=== PATIENT | female | born 1970 | race Caucasian/White ===

== ENCOUNTER 2017-06-18 15:18 | Emergency (ER) | payer OTHER ==
[2017-06-18] MEDS ORDERED: SOD CHLORIDE 0.9% 1,000 ML IV (16:32)
[2017-06-18] MEDS ORDERED: ONDANSETRON 4 MG INJ IV (16:32)
[2017-06-18] MEDS ORDERED: morphine 4 MG/ML VIAL IV (16:32)
[2017-06-18] MEDS ORDERED: VANCOMYCIN 1 GM (PMX) 250 ML IVPB (17:00)
[2017-06-18] MEDS ORDERED: CEFEPIME 1GM/50 ML (PMX) 50 ML IVPB (17:00)
== END 2017-06-18 18:15 | disposition home or self-care (01) ==
LOC: E/R 15:18 → FTE 18:15
DX: J06.9 Acute upper respiratory infection, unspecified (principal); I10 Essential (primary) hypertension; E11.9 Type 2 diabetes mellitus without complications; Z79.01 Long term (current) use of anticoagulants; Z79.4 Long term (current) use of insulin; Z79.82 Long term (current) use of aspirin; Z79.84 Long term (current) use of oral hypoglycemic drugs
CPT/HCPCS: 99282; Z7502

== ENCOUNTER 2017-09-23 08:19 | Inpatient (IN) | payer MEDICAID, OTHER ==
[2017-09-23 09:25] LABS: ADD MAN DIFF? NO
[2017-09-23 09:29] LABS: WHITE BLOOD COUNT 16.2 10^3/ul (4.8-10.8)
[2017-09-23 09:29] LABS: BASOPHILS % 0.2 % (0.0-2.0); EOSINOPHILS % 0.2 % (0.0-7.0); HEMATOCRIT 31.1 % (37.0-47.0); HEMOGLOBIN 10.4 g/dl (12.0-16.0); LYMPHOCYTES # 1.6 10^3/ul (0.8-2.9); MEAN CORPUSCULAR HEMOGLOBIN 26.9 pg (29.0-33.0); MEAN CORPUSCULAR HGB CONC 33.4 g/dl (32.0-37.0); MEAN CORPUSCULAR VOLUME 80.4 fl (82.0-101.0); MEAN PLATELET VOLUME 9.7 fl (7.4-10.4); MONOCYTE # 1.2 10^3/ul (0.3-0.9); MONOCYTES % 7.2 % (0.0-11.0); NEUTROPHIL # 13.2 10^3/ul (1.6-7.5); NEUTROPHILS % 81.6 % (39.0-77.0); PLATELET COUNT 393 10^3/UL (140-415); RED BLOOD COUNT 3.87 10^6/ul (4.20-5.40)
[2017-09-23 09:33] LABS: ADD UMIC YES; UR ASCORBIC ACID NEGATIVE (NEGATIVE); UR BACTERIA FEW /HPF (NONE SEEN); UR BILIRUBIN (Dip) NEGATIVE (NEGATIVE); UR BLOOD (Dip) NEGATIVE (NEGATIVE); UR CLARITY CLEAR (CLEAR); UR COLOR STRAW (YELLOW); UR GLUCOSE (Dip) 3+ mg/dL (NEGATIVE); UR KETONES (Dip) NEGATIVE (NEGATIVE); UR LEUKOCYTE ESTERASE (Dip) NEGATIVE Leu/ul (NEGATIVE); UR NITRITE (Dip) NEGATIVE (NEGATIVE); UR RBC 1 /HPF (0-5); UR SPECIFIC GRAVITY (Dip) 1.011 (1.003-1.030); UR TOTAL PROTEIN (Dip) 2+ mg/dl (NEGATIVE); UR UROBILINOGEN (Dip) NEGATIVE (NEGATIVE); UR WBC 4 /HPF (0-5)
[2017-09-23] MEDS: ACETAMINOPHEN 325 MG TAB PO ×2 (09:38→19:51)
[2017-09-23] MEDS: CEFTRIAXONE 1 GM/50 ML (PMX) 50 ML IVPB (09:39)
[2017-09-23] MEDS: SODIUM CHLORIDE 0.9% 1L BAG IV* (09:39)
[2017-09-23 09:50] LABS: INR 0.86; PROTIME 11.8 Sec (11.9-14.9); PT RATIO 0.9
[2017-09-23 09:51] LABS: PARTIAL THROMBOPLASTIN TIME 36.1 Sec (25.0-35.0)
[2017-09-23 09:51] LABS: LACTIC ACID 1.4 mmol/L (0.5-2.0)
[2017-09-23 09:52] LABS: ALANINE AMINOTRANSFERASE 23 IU/L (13-69); ALBUMIN 3.7 g/dl (3.3-4.9); ALBUMIN/GLOBULIN RATIO 0.94; ALKALINE PHOSPHATASE 129 IU/L (42-121); ANION GAP 18 (8-16); ASPARTATE AMINO TRANSFERASE 18 IU/L (15-46); BILIRUBIN,INDIRECT 0.2 mg/dl (0-1.1); BILIRUBIN,TOTAL 0.2 mg/dl (0.2-1.3); BLOOD UREA NITROGEN 14 mg/dl (7-20); CALCIUM 8.6 mg/dl (8.4-10.2); CARBON DIOXIDE 23 mmol/L (21-31); CHLORIDE 101 mmol/L (97-110); CREATININE 0.83 mg/dl (0.44-1.00); POTASSIUM 4.5 mmol/L (3.5-5.1); SODIUM 137 mmol/L (135-144); TOTAL PROTEIN 7.6 g/dl (6.1-8.1)
[2017-09-23 09:58] LABS: GLUCOSE 402 mg/dl (70-220)
[2017-09-23 10:03] LABS: TROPONIN-I < 0.012 ng/ml (0.00-0.12)
[2017-09-23 11:07] LABS: LACTIC ACID 1.2 mmol/L (0.5-2.0)
[2017-09-23] MEDS: AZITHROMYCIN 500MG/NS (PMX) 250 ML IVPB (11:36)
[2017-09-23] MEDS: IBUPROFEN 800 MG TAB PO (12:14)
[2017-09-23] MEDS ORDERED: ONDANSETRON 4 MG INJ IV (12:30)
[2017-09-23] MEDS: metFORMIN 500 MG TAB PO (17:35)
[2017-09-23] MEDS ORDERED: GLUCOSE GEL 15 GRAM TUBE PO ×2 (18:00)
[2017-09-23] MEDS ORDERED: GLUCAGON 1 MG INJ IM (18:00)
[2017-09-23] MEDS: INSULIN ASPART [NOVOLOG] 3 ML PEN SC ×2 (18:00→21:57)
[2017-09-23] MEDS ORDERED: GLUCOSE GEL 15 GRAM TUBE BUCCAL (18:00)
[2017-09-23] MEDS ORDERED: DEXTROSE 50% 50 ML SYRINGE IV ×2 (18:00)
[2017-09-23] MEDS: SOD CHLORIDE 0.45% 1,000 ML IV ×2 (18:06→22:00)
[2017-09-23] MEDS: PIPER-TAZO 3.375 GM IV (PMX) 100 ML IVPB (18:06)
[2017-09-23] MEDS: INSULIN GLARGINE [LANtus] 3 ML PEN SC (21:58)
[2017-09-23] MEDS: LEVOFLOXACIN 750MG/D5W (PMX) 150 ML IVPB (23:33)
[2017-09-23] MEDS: KETOROLAC 15 MG INJ IV (23:36)
[2017-09-24] MEDS ORDERED: ZOLPIDEM 5 MG TAB (01:03)
[2017-09-24] MEDS: VANCOMYCIN 1 GM (PMX) 250 ML IVPB ×2 (01:07→21:00)
[2017-09-24] MEDS: ZOLPIDEM 5 MG TAB PO ×2 (01:08→22:15)
[2017-09-24] MEDS: PANTOPRAZOLE (EC) 40 MG TAB PO (05:38)
[2017-09-24] MEDS: KETOROLAC 15 MG INJ IV ×3 (05:40→20:59)
[2017-09-24 06:29] LABS: ADD MAN DIFF? NO
[2017-09-24 06:44] LABS: BASOPHILS % 0.2 % (0.0-2.0); EOSINOPHILS % 0.3 % (0.0-7.0); HEMATOCRIT 27.6 % (37.0-47.0); HEMOGLOBIN 9.1 g/dl (12.0-16.0); LYMPHOCYTES # 1.8 10^3/ul (0.8-2.9); LYMPHOCYTES % 12.7 % (15.0-51.0); MEAN CORPUSCULAR HEMOGLOBIN 26.4 pg (29.0-33.0); MONOCYTE # 1.1 10^3/ul (0.3-0.9); MONOCYTES % 7.4 % (0.0-11.0); NEUTROPHIL # 11.1 10^3/ul (1.6-7.5); NEUTROPHILS % 78.8 % (39.0-77.0); PLATELET COUNT 357 10^3/UL (140-415); RED BLOOD COUNT 3.45 10^6/ul (4.20-5.40); RED CELL DISTRIBUTION WIDTH 13.9 % (11.5-14.5)
[2017-09-24 06:44] LABS: WHITE BLOOD COUNT 14.1 10^3/ul (4.8-10.8)
[2017-09-24 06:47] LABS: INR 0.96; PROTIME 12.9 Sec (11.9-14.9)
[2017-09-24 06:48] LABS: PARTIAL THROMBOPLASTIN TIME 33.7 Sec (25.0-35.0)
[2017-09-24] MEDS: LEVOTHYROXINE 50 MCG TAB PO (06:52)
[2017-09-24 06:55] LABS: LACTIC ACID 1.2 mmol/L (0.5-2.0)
[2017-09-24 06:56] LABS: ALANINE AMINOTRANSFERASE 28 IU/L (13-69); ALBUMIN 3.2 g/dl (3.3-4.9); ALBUMIN/GLOBULIN RATIO 1.06; ALKALINE PHOSPHATASE 120 IU/L (42-121); ANION GAP 15 (8-16); ASPARTATE AMINO TRANSFERASE 16 IU/L (15-46); BLOOD UREA NITROGEN 15 mg/dl (7-20); CALCIUM 7.8 mg/dl (8.4-10.2); CARBON DIOXIDE 19 mmol/L (21-31); CHLORIDE 106 mmol/L (97-110); CREATININE 0.77 mg/dl (0.44-1.00); GLUCOSE 276 mg/dl (70-220); POTASSIUM 4.2 mmol/L (3.5-5.1); SODIUM 136 mmol/L (135-144); TOTAL PROTEIN 6.2 g/dl (6.1-8.1)
[2017-09-24 07:04] LABS: TROPONIN-I 0.092 ng/ml (0.00-0.12)
[2017-09-24] MEDS: ALBUTEROL 0.083% (NEB) 2.5 MG/3 ML AMP HHN ×3 (08:26→17:00)
[2017-09-24] MEDS: metFORMIN 500 MG TAB PO ×2 (09:17→18:06)
[2017-09-24] MEDS: INSULIN ASPART [NOVOLOG] 3 ML PEN SC ×4 (09:18→21:09)
[2017-09-24] MEDS: LORATADINE 10 MG TAB PO (09:18)
[2017-09-24] MEDS: LOSARTAN 25 MG TAB PO (09:19)
[2017-09-24] MEDS: CLOPIDOGREL 75 MG TAB PO (09:19)
[2017-09-24] MEDS: ASPIRIN (EC) 81 MG TAB PO (09:19)
[2017-09-24] MEDS: FLUOXETINE 20 MG CAP PO (09:19)
[2017-09-24] MEDS: ACETAMINOPHEN 325 MG TAB PO (11:20)
[2017-09-24] MEDS: SOD CHLORIDE 0.45% 1,000 ML IV (12:51)
[2017-09-24] MEDS ORDERED: NITROGLYCERIN (SL) 0.4 MG TAB (15:22)
[2017-09-24] MEDS: NITROGLYCERIN (SL) 0.4 MG TAB SL (15:25)
[2017-09-24] MEDS ORDERED: NITROGLYCERIN (SL) 0.4 MG TAB SL (16:00)
[2017-09-24 17:10] LABS: B-TYPE NATRIURETIC PEPTIDE 3710 PG/ML (0-125)
[2017-09-24 17:25] LABS: TROPONIN-I 0.185 ng/ml (0.00-0.12)
[2017-09-24] MEDS: ONDANSETRON 4 MG TAB PO (17:31)
[2017-09-24] MEDS ORDERED: SOD CHLORIDE 0.45% 1,000 ML IV (18:20)
[2017-09-24] MEDS ORDERED: ACETAMINOPHEN 325 MG TAB PO (18:30)
[2017-09-24] MEDS ORDERED: ONDANSETRON 4 MG INJ IV (18:30)
[2017-09-24] MEDS: METOPROLOL 25 MG TAB PO (20:59)
[2017-09-24] MEDS ORDERED: ATORVASTATIN 40 MG TAB PO (21:00)
[2017-09-24] MEDS ORDERED: ATORVASTATIN 20 MG TAB PO (21:00)
[2017-09-24] MEDS: INSULIN GLARGINE [LANtus] 3 ML PEN SC (21:09)
[2017-09-24] MEDS: ATORVASTATIN 20 MG TAB PO (21:12)
[2017-09-24] MEDS: FUROSEMIDE 20 MG INJ IV (21:12)
[2017-09-24 21:43] LABS: CREATINE KINASE 56 IU/L (23-200)
[2017-09-24 21:56] LABS: CK INDEX 1.1; CK-MB 0.64 ng/ml (0.0-2.4)
[2017-09-24 21:58] LABS: TROPONIN-I 0.247 ng/ml (0.00-0.12)
[2017-09-24] MEDS: LEVOFLOXACIN 750MG/D5W (PMX) 150 ML IVPB (23:25)
[2017-09-25] MEDS: LEVOTHYROXINE 50 MCG TAB PO (05:58)
[2017-09-25] MEDS: PANTOPRAZOLE (EC) 40 MG TAB PO (05:58)
[2017-09-25] MEDS: KETOROLAC 15 MG INJ IV ×2 (06:04→17:19)
[2017-09-25 07:48] LABS: ADD MAN DIFF? NO
[2017-09-25 07:54] LABS: BASOPHILS % 0.2 % (0.0-2.0); EOSINOPHILS # 0.1 10^3/ul (0.0-0.5); EOSINOPHILS % 0.8 % (0.0-7.0); HEMATOCRIT 23.5 % (37.0-47.0); HEMOGLOBIN 7.8 g/dl (12.0-16.0); LYMPHOCYTES # 2.1 10^3/ul (0.8-2.9); LYMPHOCYTES % 18.9 % (15.0-51.0); MEAN CORPUSCULAR HEMOGLOBIN 26.7 pg (29.0-33.0); MEAN CORPUSCULAR HGB CONC 33.2 g/dl (32.0-37.0); MEAN CORPUSCULAR VOLUME 80.5 fl (82.0-101.0); MEAN PLATELET VOLUME 10.1 fl (7.4-10.4); MONOCYTE # 1.2 10^3/ul (0.3-0.9); MONOCYTES % 10.2 % (0.0-11.0); NEUTROPHIL # 7.9 10^3/ul (1.6-7.5); NEUTROPHILS % 69.4 % (39.0-77.0); PLATELET COUNT 345 10^3/UL (140-415); RED BLOOD COUNT 2.92 10^6/ul (4.20-5.40); RED CELL DISTRIBUTION WIDTH 14.1 % (11.5-14.5)
[2017-09-25 07:54] LABS: WHITE BLOOD COUNT 11.3 10^3/ul (4.8-10.8)
[2017-09-25 08:12] LABS: CREATINE KINASE 46 IU/L (23-200)
[2017-09-25] MEDS: LORATADINE 10 MG TAB PO (08:14)
[2017-09-25] MEDS: metFORMIN 500 MG TAB PO ×2 (08:14→17:17)
[2017-09-25] MEDS: CLOPIDOGREL 75 MG TAB PO (08:15)
[2017-09-25] MEDS: ASPIRIN (EC) 81 MG TAB PO (08:15)
[2017-09-25] MEDS: LOSARTAN 25 MG TAB PO (08:15)
[2017-09-25] MEDS: FLUOXETINE 20 MG CAP PO (08:15)
[2017-09-25] MEDS: METOPROLOL 25 MG TAB PO (08:15)
[2017-09-25 08:17] LABS: ALANINE AMINOTRANSFERASE 25 IU/L (13-69); ALBUMIN 2.8 g/dl (3.3-4.9); ALBUMIN/GLOBULIN RATIO 0.96; ALKALINE PHOSPHATASE 136 IU/L (42-121); ANION GAP 14 (8-16); ASPARTATE AMINO TRANSFERASE 20 IU/L (15-46); BLOOD UREA NITROGEN 14 mg/dl (7-20); CALCIUM 8.2 mg/dl (8.4-10.2); CARBON DIOXIDE 20 mmol/L (21-31); CHLORIDE 104 mmol/L (97-110); CREATININE 0.88 mg/dl (0.44-1.00); GLUCOSE 183 mg/dl (70-220); POTASSIUM 4.7 mmol/L (3.5-5.1); SODIUM 133 mmol/L (135-144); TOTAL PROTEIN 5.7 g/dl (6.1-8.1)
[2017-09-25 08:21] LABS: B-TYPE NATRIURETIC PEPTIDE 3500 PG/ML (0-125)
[2017-09-25] MEDS: INSULIN ASPART [NOVOLOG] 3 ML PEN SC ×4 (08:22→21:00)
[2017-09-25 08:23] LABS: CK INDEX 1.6; CK-MB 0.74 ng/ml (0.0-2.4)
[2017-09-25 08:26] LABS: TROPONIN-I 0.252 ng/ml (0.00-0.12)
[2017-09-25 09:15] LABS: ERYTHROCYTE SEDIMENTATION RATE 130 mm/Hr (0-20)
[2017-09-25] MEDS: ALBUTEROL 0.083% (NEB) 2.5 MG/3 ML AMP HHN ×3 (09:19→16:28)
[2017-09-25 09:32] LABS: C-REACTIVE PROTEIN 21.9 mg/dl (0.0-0.9)
[2017-09-25 11:20] LABS: ADD MAN DIFF? NO
[2017-09-25 11:25] LABS: BASOPHILS % 0.2 % (0.0-2.0); EOSINOPHILS # 0.1 10^3/ul (0.0-0.5); EOSINOPHILS % 0.8 % (0.0-7.0); HEMOGLOBIN 7.9 g/dl (12.0-16.0); LYMPHOCYTES # 2.7 10^3/ul (0.8-2.9); LYMPHOCYTES % 24.4 % (15.0-51.0); MEAN CORPUSCULAR HEMOGLOBIN 26.4 pg (29.0-33.0); MEAN CORPUSCULAR HGB CONC 32.9 g/dl (32.0-37.0); MEAN CORPUSCULAR VOLUME 80.3 fl (82.0-101.0); MONOCYTE # 1.2 10^3/ul (0.3-0.9); MONOCYTES % 10.3 % (0.0-11.0); NEUTROPHIL # 7.1 10^3/ul (1.6-7.5); NEUTROPHILS % 63.7 % (39.0-77.0); PLATELET COUNT 347 10^3/UL (140-415); RED BLOOD COUNT 2.99 10^6/ul (4.20-5.40); RED CELL DISTRIBUTION WIDTH 14.4 % (11.5-14.5)
[2017-09-25 11:25] LABS: WHITE BLOOD COUNT 11.2 10^3/ul (4.8-10.8)
[2017-09-25 11:48] LABS: CREATINE KINASE 47 IU/L (23-200)
[2017-09-25 12:00] LABS: CK INDEX 1.1; CK-MB 0.52 ng/ml (0.0-2.4)
[2017-09-25 12:03] LABS: TROPONIN-I 0.209 ng/ml (0.00-0.12)
[2017-09-25 12:28] LABS: HEMOGLOBIN A1C 11.6 % (0-5.9)
[2017-09-25] MEDS: ERTAPENEM SODIUM 1 GM in SOD CHLORIDE 0.9% 100 ML IVPB (14:30)
[2017-09-25] MEDS: SOD CHLORIDE 0.9% 100 ML (17:48)
[2017-09-25] MEDS: IODIXANOL LOCM 100 ML BTL (17:48)
[2017-09-25 19:06] LABS: IRON 29 ug/dl (35-150)
[2017-09-25 19:16] LABS: % IRON SATURATION 10 % SAT (22-52); TOTAL IRON BINDING CAPACITY 291 ug/dl (241-421)
[2017-09-25] MEDS: METOPROLOL 50 MG TAB PO ×2 (21:00→21:44)
[2017-09-25] MEDS: DIPHENHYDRAMINE 50 MG INJ IV (21:06)
[2017-09-25] MEDS: TRIAMCINOLONE ACET 0.1% 15 GM CR TOP (21:06)
[2017-09-25] MEDS: traZODone 50 MG TAB PO (21:12)
[2017-09-25] MEDS: ACETAMINOPHEN 500 MG TAB PO (21:12)
[2017-09-25] MEDS: ATORVASTATIN 40 MG TAB PO (21:12)
[2017-09-25] MEDS: INSULIN GLARGINE [LANtus] 3 ML PEN SC (21:21)
[2017-09-25 21:28] LABS: IMMEDIATE SPIN CROSSMATCH 1 1
[2017-09-26] MEDS: LEVOFLOXACIN 750MG/D5W (PMX) 150 ML IVPB ×2 (00:41→23:04)
[2017-09-26] MEDS: FUROSEMIDE 20 MG INJ IV (00:44)
[2017-09-26] MEDS: ACETAMINOPHEN 325 MG TAB PO ×2 (03:57→08:55)
[2017-09-26] MEDS: PANTOPRAZOLE (EC) 40 MG TAB PO (06:00)
[2017-09-26] MEDS: LEVOTHYROXINE 50 MCG TAB PO (06:00)
[2017-09-26] MEDS: INSULIN ASPART [NOVOLOG] 3 ML PEN SC ×4 (07:55→21:00)
[2017-09-26] MEDS: ALBUTEROL 0.083% (NEB) 2.5 MG/3 ML AMP HHN ×3 (08:21→17:33)
[2017-09-26] MEDS: TRIAMCINOLONE ACET 0.1% 15 GM CR TOP ×2 (08:31→21:13)
[2017-09-26] MEDS: metFORMIN 500 MG TAB PO ×2 (08:54→17:26)
[2017-09-26] MEDS: LOSARTAN 25 MG TAB PO (08:54)
[2017-09-26] MEDS: ASPIRIN (EC) 81 MG TAB PO (08:54)
[2017-09-26] MEDS: METOPROLOL 50 MG TAB PO ×2 (08:54→20:54)
[2017-09-26] MEDS: FLUOXETINE 20 MG CAP PO (08:54)
[2017-09-26] MEDS: LORATADINE 10 MG TAB PO (08:54)
[2017-09-26] MEDS: CLOPIDOGREL 75 MG TAB PO (08:54)
[2017-09-26] MEDS: ERTAPENEM SODIUM 1 GM in SOD CHLORIDE 0.9% 100 ML IVPB (14:31)
[2017-09-26] MEDS ORDERED: FUROSEMIDE 40 MG INJ (14:41)
[2017-09-26] MEDS: FUROSEMIDE 40 MG INJ IV (14:45)
[2017-09-26 14:50] LABS: ADD MAN DIFF? NO
[2017-09-26 15:12] LABS: BASOPHILS % 0.2 % (0.0-2.0); EOSINOPHILS # 0.3 10^3/ul (0.0-0.5); EOSINOPHILS % 2.4 % (0.0-7.0); HEMATOCRIT 27.8 % (37.0-47.0); HEMOGLOBIN 9.3 g/dl (12.0-16.0); LYMPHOCYTES # 2.9 10^3/ul (0.8-2.9); MEAN CORPUSCULAR HGB CONC 33.5 g/dl (32.0-37.0); MEAN CORPUSCULAR VOLUME 80.8 fl (82.0-101.0); MEAN PLATELET VOLUME 10.3 fl (7.4-10.4); MONOCYTES % 8.7 % (0.0-11.0); NEUTROPHIL # 6.8 10^3/ul (1.6-7.5); PLATELET COUNT 412 10^3/UL (140-415); RED BLOOD COUNT 3.44 10^6/ul (4.20-5.40); RED CELL DISTRIBUTION WIDTH 14.6 % (11.5-14.5)
[2017-09-26 15:24] LABS: ALANINE AMINOTRANSFERASE 23 IU/L (13-69); ALBUMIN 3.2 g/dl (3.3-4.9); ALBUMIN/GLOBULIN RATIO 0.82; ALKALINE PHOSPHATASE 152 IU/L (42-121); ANION GAP 16 (8-16); ASPARTATE AMINO TRANSFERASE 17 IU/L (15-46); BLOOD UREA NITROGEN 17 mg/dl (7-20); CALCIUM 9.3 mg/dl (8.4-10.2); CARBON DIOXIDE 21 mmol/L (21-31); CHLORIDE 105 mmol/L (97-110); CREATININE 0.93 mg/dl (0.44-1.00); GLUCOSE 154 mg/dl (70-220); POTASSIUM 4.6 mmol/L (3.5-5.1); SODIUM 137 mmol/L (135-144); TOTAL PROTEIN 7.1 g/dl (6.1-8.1)
[2017-09-26] MEDS: ONDANSETRON 4 MG TAB PO (20:53)
[2017-09-26] MEDS: traZODone 50 MG TAB PO (20:53)
[2017-09-26] MEDS: ATORVASTATIN 40 MG TAB PO (20:53)
[2017-09-26] MEDS: INSULIN GLARGINE [LANtus] 3 ML PEN SC (21:11)
[2017-09-26] MEDS: ZOLPIDEM 5 MG TAB PO (21:14)
[2017-09-27] MEDS: PANTOPRAZOLE (EC) 40 MG TAB PO (05:59)
[2017-09-27] MEDS: LEVOTHYROXINE 50 MCG TAB PO (06:01)
[2017-09-27 07:13] LABS: ADD MAN DIFF? NO
[2017-09-27 07:14] LABS: WHITE BLOOD COUNT 10.4 10^3/ul (4.8-10.8)
[2017-09-27 07:14] LABS: BASOPHILS % 0.2 % (0.0-2.0); EOSINOPHILS # 0.3 10^3/ul (0.0-0.5); EOSINOPHILS % 2.7 % (0.0-7.0); HEMATOCRIT 27.4 % (37.0-47.0); HEMOGLOBIN 9.2 g/dl (12.0-16.0); LYMPHOCYTES # 2.8 10^3/ul (0.8-2.9); LYMPHOCYTES % 26.4 % (15.0-51.0); MEAN CORPUSCULAR HEMOGLOBIN 27.4 pg (29.0-33.0); MEAN CORPUSCULAR HGB CONC 33.6 g/dl (32.0-37.0); MEAN CORPUSCULAR VOLUME 81.5 fl (82.0-101.0); MEAN PLATELET VOLUME 9.7 fl (7.4-10.4); MONOCYTE # 0.9 10^3/ul (0.3-0.9); NEUTROPHIL # 6.3 10^3/ul (1.6-7.5); NEUTROPHILS % 60.9 % (39.0-77.0); PLATELET COUNT 452 10^3/UL (140-415); RED BLOOD COUNT 3.36 10^6/ul (4.20-5.40); RED CELL DISTRIBUTION WIDTH 14.7 % (11.5-14.5)
[2017-09-27 07:36] LABS: ALANINE AMINOTRANSFERASE 24 IU/L (13-69); ALBUMIN 3.1 g/dl (3.3-4.9); ALBUMIN/GLOBULIN RATIO 0.86; ALKALINE PHOSPHATASE 126 IU/L (42-121); ANION GAP 14 (8-16); ASPARTATE AMINO TRANSFERASE 14 IU/L (15-46); BILIRUBIN,INDIRECT 0.1 mg/dl (0-1.1); BILIRUBIN,TOTAL 0.1 mg/dl (0.2-1.3); BLOOD UREA NITROGEN 19 mg/dl (7-20); CALCIUM 8.9 mg/dl (8.4-10.2); CARBON DIOXIDE 23 mmol/L (21-31); CHLORIDE 105 mmol/L (97-110); CREATININE 1.09 mg/dl (0.44-1.00); GLUCOSE 92 mg/dl (70-220); POTASSIUM 4.4 mmol/L (3.5-5.1); SODIUM 138 mmol/L (135-144); TOTAL PROTEIN 6.7 g/dl (6.1-8.1)
[2017-09-27 07:37] LABS: MAGNESIUM 1.4 mg/dl (1.7-2.5)
[2017-09-27] MEDS: INSULIN ASPART [NOVOLOG] 3 ML PEN SC ×3 (07:55→17:25)
[2017-09-27] MEDS: metFORMIN 500 MG TAB PO ×2 (08:00→17:25)
[2017-09-27] MEDS: ALBUTEROL 0.083% (NEB) 2.5 MG/3 ML AMP HHN ×3 (08:18→16:48)
[2017-09-27] MEDS: FLUOXETINE 20 MG CAP PO (09:44)
[2017-09-27] MEDS: CLOPIDOGREL 75 MG TAB PO (09:44)
[2017-09-27] MEDS: ASPIRIN (EC) 81 MG TAB PO (09:45)
[2017-09-27] MEDS: LORATADINE 10 MG TAB PO (09:45)
[2017-09-27] MEDS: LOSARTAN 25 MG TAB PO (09:45)
[2017-09-27] MEDS: FUROSEMIDE 40 MG TAB PO (09:45)
[2017-09-27] MEDS: LISINOPRIL 5 MG TAB PO (09:46)
[2017-09-27] MEDS: TRIAMCINOLONE ACET 0.1% 15 GM CR TOP (09:46)
[2017-09-27] MEDS: METOPROLOL 50 MG TAB PO (09:46)
[2017-09-27] MEDS: ERTAPENEM SODIUM 1 GM in SOD CHLORIDE 0.9% 100 ML IVPB (15:06)
[2017-09-28] MEDS ORDERED: LEVOFLOXACIN 750 MG TABLET PO (06:00)
[2017-09-28] MEDS ORDERED: LISINOPRIL 5 MG TAB PO (09:00)
== END 2017-09-27 19:35 | disposition home or self-care (01) | DRG 871 ==
LOC: TEL 09-24 17:10 → FTE 08:19 → MS3 12:21 → PP2 21:16
PROC: 30233N1 Transfusion of Nonautologous Red Blood Cells into Peripheral Vein, Percutaneous Approach (ICD-10-PCS; principal; 2017-09-25)
DX: A41.9 Sepsis, unspecified organism (principal); J18.9 Pneumonia, unspecified organism; I50.31 Acute diastolic (congestive) heart failure; N39.0 Urinary tract infection, site not specified; I11.0 Hypertensive heart disease with heart failure; E66.01 Morbid (severe) obesity due to excess calories; E11.65 Type 2 diabetes mellitus with hyperglycemia; L40.50 Arthropathic psoriasis, unspecified; D64.9 Anemia, unspecified; E78.5 Hyperlipidemia, unspecified; E03.9 Hypothyroidism, unspecified; F32.9 Major depressive disorder, single episode, unspecified; F41.9 Anxiety disorder, unspecified; G47.00 Insomnia, unspecified; I25.10 Atherosclerotic heart disease of native coronary artery without angina pectoris; I25.5 Ischemic cardiomyopathy; S43.402A Unspecified sprain of left shoulder joint, initial encounter; X58.XXXA Exposure to other specified factors, initial encounter; B96.20 Unspecified Escherichia coli [E. coli] as the cause of diseases classified elsewhere; Z16.12 Extended spectrum beta lactamase (ESBL) resistance; Z68.33 Body mass index [BMI] 33.0-33.9, adult; I25.2 Old myocardial infarction; Z98.61 Coronary angioplasty status; Z79.4 Long term (current) use of insulin; Z79.02 Long term (current) use of antithrombotics/antiplatelets; Z79.82 Long term (current) use of aspirin
CPT/HCPCS: 36415; 36430; 71045; 71046; 71260; 80053; 81001; 81025; 82550; 82553; 82607; 82746; 82962; 83036; 83540; 83605; 83735; 83880; 84443; 84484; 85025; 85610; 85651; 85730; 86140; 86850; 86900; 86901; 86920; 87040; 87086; 87400; 93005; 93306; 94640; 94664; 96374; 96375; 99291-25

== ENCOUNTER 2017-10-09 20:24 | Emergency (ER) | payer MEDICAID ==
[2017-10-09] MEDS: FUROSEMIDE 20 MG TAB PO (21:24)
== END 2017-10-09 21:45 | disposition home or self-care (01) ==
LOC: E/R 20:24
DX: M79.89 Other specified soft tissue disorders (principal); I10 Essential (primary) hypertension; E11.9 Type 2 diabetes mellitus without complications; Z79.4 Long term (current) use of insulin; Z79.82 Long term (current) use of aspirin
CPT/HCPCS: 99283; Z7502

== ENCOUNTER 2017-10-16 12:22 | Emergency (ER) | payer MEDICAID ==
[2017-10-16 13:34] LABS: ADD MAN DIFF? NO
[2017-10-16 13:36] LABS: BASOPHILS % 0.2 % (0.0-2.0); EOSINOPHILS # 0.3 10^3/ul (0.0-0.5); EOSINOPHILS % 3.3 % (0.0-7.0); HEMATOCRIT 36.4 % (37.0-47.0); HEMOGLOBIN 12.2 g/dl (12.0-16.0); LYMPHOCYTES % 32.4 % (15.0-51.0); MEAN CORPUSCULAR HEMOGLOBIN 27.1 pg (29.0-33.0); MEAN CORPUSCULAR HGB CONC 33.5 g/dl (32.0-37.0); MEAN CORPUSCULAR VOLUME 80.7 fl (82.0-101.0); MEAN PLATELET VOLUME 10.2 fl (7.4-10.4); MONOCYTE # 0.6 10^3/ul (0.3-0.9); MONOCYTES % 6.4 % (0.0-11.0); NEUTROPHIL # 5.4 10^3/ul (1.6-7.5); NEUTROPHILS % 57.2 % (39.0-77.0); PLATELET COUNT 379 10^3/UL (140-415); RED BLOOD COUNT 4.51 10^6/ul (4.20-5.40)
[2017-10-16 13:36] LABS: WHITE BLOOD COUNT 9.4 10^3/ul (4.8-10.8)
[2017-10-16 13:59] LABS: ALANINE AMINOTRANSFERASE 15 IU/L (13-69); ALBUMIN 3.8 g/dl (3.3-4.9); ALBUMIN/GLOBULIN RATIO 1.02; ALKALINE PHOSPHATASE 108 IU/L (42-121); ANION GAP 17 (8-16); ASPARTATE AMINO TRANSFERASE 16 IU/L (15-46); BILIRUBIN,INDIRECT 0.2 mg/dl (0-1.1); BILIRUBIN,TOTAL 0.2 mg/dl (0.2-1.3); BLOOD UREA NITROGEN 23 mg/dl (7-20); CARBON DIOXIDE 27 mmol/L (21-31); CHLORIDE 96 mmol/L (97-110); CREATINE KINASE 59 IU/L (23-200); CREATININE 1.03 mg/dl (0.44-1.00); GLUCOSE 370 mg/dl (70-220); POTASSIUM 4.9 mmol/L (3.5-5.1); SODIUM 135 mmol/L (135-144); TOTAL PROTEIN 7.5 g/dl (6.1-8.1)
[2017-10-16 14:09] LABS: B-TYPE NATRIURETIC PEPTIDE 1320 PG/ML (0-125); CK INDEX 0.7; CK-MB 0.41 ng/ml (0.0-2.4); INR 0.92; PROTIME 12.4 Sec (11.9-14.9)
[2017-10-16 14:10] LABS: PARTIAL THROMBOPLASTIN TIME 29.7 Sec (25.0-35.0)
[2017-10-16 14:11] LABS: TROPONIN-I < 0.012 ng/ml (0.00-0.12)
[2017-10-16] MEDS: INSULIN LISPRO 100 UNIT/ML VIAL SC (14:23)
[2017-10-16] MEDS: FUROSEMIDE 40 MG INJ IV (14:43)
== END 2017-10-16 14:56 | disposition home or self-care (01) ==
LOC: FTE 12:22
DX: I50.9 Heart failure, unspecified (principal); I42.9 Cardiomyopathy, unspecified; I10 Essential (primary) hypertension; E11.9 Type 2 diabetes mellitus without complications; Z79.4 Long term (current) use of insulin
CPT/HCPCS: 36415; 71045; 80053; 82550; 82553; 82962; 83880; 84484; 85025; 85610; 85730; 93005; 96372; 96374; 99285-25

== ENCOUNTER 2017-10-23 20:51 | Emergency (ER) | payer SELFPAY | END 2017-10-23 22:30 | disposition left against medical advice (07) | LOC: FTE 20:51 | DX: Z53.21 Procedure and treatment not carried out due to patient leaving prior to being seen by health care provider (principal) ==

== ENCOUNTER 2017-12-06 08:51 | Emergency (ER) | payer MEDICAID ==
[2017-12-06] MEDS: FAMOTIDINE 20 MG INJ IV (09:31)
[2017-12-06] MEDS: SOD CHLORIDE 0.9% 500 ML IV (09:31)
[2017-12-06 09:54] LABS: ADD MAN DIFF? NO
[2017-12-06 09:57] LABS: ABNORMAL IP MESSAGE 1; BASOPHILS % 0.2 % (0.0-2.0); EOSINOPHILS # 0.1 10^3/ul (0.0-0.5); EOSINOPHILS % 0.4 % (0.0-7.0); HEMOGLOBIN 9.8 g/dl (12.0-16.0); LYMPHOCYTES # 3.3 10^3/ul (0.8-2.9); LYMPHOCYTES % 17.2 % (15.0-51.0); MEAN CORPUSCULAR HEMOGLOBIN 26.9 pg (29.0-33.0); MEAN CORPUSCULAR HGB CONC 32.7 g/dl (32.0-37.0); MEAN CORPUSCULAR VOLUME 82.4 fl (82.0-101.0); MEAN PLATELET VOLUME 9.9 fl (7.4-10.4); MONOCYTE # 1.6 10^3/ul (0.3-0.9); MONOCYTES % 8.2 % (0.0-11.0); NEUTROPHIL # 14.2 10^3/ul (1.6-7.5); NEUTROPHILS % 73.3 % (39.0-77.0); PLATELET COUNT 418 10^3/UL (140-415); RED BLOOD COUNT 3.64 10^6/ul (4.20-5.40); RED CELL DISTRIBUTION WIDTH 14.8 % (11.5-14.5)
[2017-12-06 09:57] LABS: WHITE BLOOD COUNT 19.3 10^3/ul (4.8-10.8)
[2017-12-06 09:58] LABS: POSITIVE DIFF @See below
[2017-12-06 10:03] LABS: ADD UMIC YES; UR ASCORBIC ACID NEGATIVE (NEGATIVE); UR BACTERIA FEW /HPF (NONE SEEN); UR BILIRUBIN (Dip) NEGATIVE (NEGATIVE); UR BLOOD (Dip) NEGATIVE (NEGATIVE); UR CLARITY SLIGHTLY CLOUDY (CLEAR); UR COLOR YELLOW (YELLOW); UR GLUCOSE (Dip) 1+ mg/dL (NEGATIVE); UR KETONES (Dip) NEGATIVE (NEGATIVE); UR LEUKOCYTE ESTERASE (Dip) 1+ Leu/ul (NEGATIVE); UR NITRITE (Dip) NEGATIVE (NEGATIVE); UR RBC 2 /HPF (0-5); UR SPECIFIC GRAVITY (Dip) 1.018 (1.003-1.030); UR TOTAL PROTEIN (Dip) 3+ mg/dl (NEGATIVE); UR UROBILINOGEN (Dip) NEGATIVE (NEGATIVE); UR WBC 86 /HPF (0-5)
[2017-12-06 10:13] LABS: ALANINE AMINOTRANSFERASE 20 IU/L (13-69); ALKALINE PHOSPHATASE 87 IU/L (42-121); ANION GAP 14 (8-16); BILIRUBIN,INDIRECT 0.4 mg/dl (0-1.1); BILIRUBIN,TOTAL 0.4 mg/dl (0.2-1.3); BLOOD UREA NITROGEN 14 mg/dl (7-20); CALCIUM 8.6 mg/dl (8.4-10.2); CARBON DIOXIDE 25 mmol/L (21-31); CHLORIDE 102 mmol/L (97-110); CREATININE 0.74 mg/dl (0.44-1.00); GLUCOSE 196 mg/dl (70-220); LIPASE 51 U/L (23-300); POTASSIUM 4.5 mmol/L (3.5-5.1); SODIUM 136 mmol/L (135-144)
[2017-12-06 10:29] LABS: TROPONIN-I < 0.012 ng/ml (0.000-0.120)
[2017-12-06] MEDS: CEFTRIAXONE 1 GM/50 ML (PMX) 50 ML IVPB (10:33)
[2017-12-06] MEDS: SODIUM CHLORIDE 0.9% 1L BAG IV* (10:35)
[2017-12-06 11:04] LABS: LACTIC ACID 0.8 mmol/L (0.5-2.0)
[2017-12-06] MEDS: morphine 2 MG INJ IV (11:56)
== END 2017-12-06 12:33 | disposition home or self-care (01) ==
LOC: FTE 08:51
DX: N12 Tubulo-interstitial nephritis, not specified as acute or chronic (principal); E11.9 Type 2 diabetes mellitus without complications; I25.10 Atherosclerotic heart disease of native coronary artery without angina pectoris; E03.9 Hypothyroidism, unspecified; I10 Essential (primary) hypertension; R10.2 Pelvic and perineal pain; Z79.4 Long term (current) use of insulin; Z79.82 Long term (current) use of aspirin
CPT/HCPCS: 36415; 71046; 74018; 74176; 80053; 81001; 82962; 83605; 83690; 84484; 84703; 85025; 87040; 87086; 93005; 96374; 96375; 99285-25

== ENCOUNTER 2018-06-27 07:59 | Inpatient (IN) | payer MEDICAID ==
[2018-06-27] MEDS: ONDANSETRON 4 MG INJ IV ×2 (08:27→10:07)
[2018-06-27] MEDS: morphine 4 MG/ML VIAL IV ×3 (08:28→10:37)
[2018-06-27] MEDS: SOD CHLORIDE 0.9% 1,000 ML IV (08:28)
[2018-06-27 08:41] LABS: ADD MAN DIFF? NO
[2018-06-27 08:44] LABS: BASOPHILS % 0.2 % (0.0-2.0); EOSINOPHILS % 0.2 % (0.0-7.0); HEMATOCRIT 31.8 % (37.0-47.0); HEMOGLOBIN 10.5 g/dl (12.0-16.0); LYMPHOCYTES # 1.4 10^3/ul (0.8-2.9); LYMPHOCYTES % 7.5 % (15.0-51.0); MEAN CORPUSCULAR HEMOGLOBIN 27.3 pg (29.0-33.0); MEAN CORPUSCULAR VOLUME 82.6 fl (82.0-101.0); MEAN PLATELET VOLUME 10.9 fl (7.4-10.4); MONOCYTE # 1.4 10^3/ul (0.3-0.9); MONOCYTES % 7.6 % (0.0-11.0); NEUTROPHIL # 15.9 10^3/ul (1.6-7.5); NEUTROPHILS % 83.7 % (39.0-77.0); PLATELET COUNT 329 10^3/UL (140-415); RED BLOOD COUNT 3.85 10^6/ul (4.20-5.40)
[2018-06-27 08:54] LABS: ADD UMIC YES; UR ASCORBIC ACID NEGATIVE (NEGATIVE); UR BACTERIA MODERATE /HPF (NONE SEEN); UR BILIRUBIN (Dip) NEGATIVE (NEGATIVE); UR BLOOD (Dip) 3+ mg/dL (NEGATIVE); UR CLARITY TURBID (CLEAR); UR COLOR YELLOW (YELLOW); UR GLUCOSE (Dip) 3+ mg/dL (NEGATIVE); UR KETONES (Dip) NEGATIVE (NEGATIVE); UR LEUKOCYTE ESTERASE (Dip) 3+ Leu/ul (NEGATIVE); UR NITRITE (Dip) NEGATIVE (NEGATIVE); UR RBC 32 /HPF (0-5); UR SPECIFIC GRAVITY (Dip) 1.025 (1.003-1.030); UR SQUAMOUS EPITHELIAL CELL FEW /HPF (FEW); UR TOTAL PROTEIN (Dip) 3+ mg/dl (NEGATIVE); UR UROBILINOGEN (Dip) 1+ mg/dL (NEGATIVE); UR WBC > 182 /HPF (0-5)
[2018-06-27 09:04] LABS: INR 0.88; PARTIAL THROMBOPLASTIN TIME 31.8 Sec (23.0-35.0); PT RATIO 0.9
[2018-06-27 09:07] LABS: ALBUMIN 3.3 g/dl (3.3-4.9); ALBUMIN/GLOBULIN RATIO 0.89; ALKALINE PHOSPHATASE 105 IU/L (42-121); AMYLASE 44 U/L (11-123); ANION GAP 12 (5-13); ASPARTATE AMINO TRANSFERASE 13 IU/L (15-46); BILIRUBIN,INDIRECT 0.1 mg/dl (0-1.1); BILIRUBIN,TOTAL 0.1 mg/dl (0.2-1.3); BLOOD UREA NITROGEN 25 mg/dl (7-20); CALCIUM 8.7 mg/dl (8.4-10.2); CARBON DIOXIDE 21 mmol/L (21-31); CHLORIDE 98 mmol/L (97-110); CREATININE 1.14 mg/dl (0.44-1.00); Estimated GFR 51 mL/min (>60); LIPASE 83 U/L (23-300); SODIUM 131 mmol/L (135-144)
[2018-06-27 09:12] LABS: ALANINE AMINOTRANSFERASE < 6 IU/L (13-69)
[2018-06-27 09:14] LABS: GLUCOSE 507 mg/dl (70-220); POTASSIUM 5.2 mmol/L (3.5-5.1)
[2018-06-27 09:17] LABS: TROPONIN-I < 0.012 ng/ml (0.000-0.120)
[2018-06-27] MEDS ORDERED: HYDROmorphONE 1 MG/ML SYG IV (09:35)
[2018-06-27] MEDS: SODIUM CHLORIDE 0.9% 1L BAG IV* (10:07)
[2018-06-27] MEDS: SOD CHLORIDE 0.9% 100 ML (10:07)
[2018-06-27] MEDS: IOHEXOL 300MG/ML 150 ML BTL (10:07)
[2018-06-27] MEDS: NA BICARBONATE 8.4% 50 ML SYG IV (10:08)
[2018-06-27] MEDS: CEFTRIAXONE 1 GM/50 ML (PMX) 50 ML IVPB ×2 (10:08→17:42)
[2018-06-27] MEDS: CA CHLORIDE 10% 10 ML SYRINGE IV (10:09)
[2018-06-27] MEDS: INSULIN LISPRO 100 UNIT/ML VIAL SC (10:19)
[2018-06-27] MEDS: METOCLOPRAMIDE 10 MG INJ IV (12:08)
[2018-06-27] MEDS ORDERED: ACETAMINOPHEN 325 MG TAB PO (12:30)
[2018-06-27] MEDS ORDERED: ONDANSETRON 4 MG INJ IV (12:30)
[2018-06-27] MEDS: LABETALOL HCL 20MG INJ IV (12:41)
[2018-06-27] MEDS: VANCOMYCIN 1 GM (PMX) 250 ML IVPB (14:23)
[2018-06-27] MEDS ORDERED: HYDROCODONE/APAP (5/325) TAB PO (16:30)
[2018-06-27] MEDS ORDERED: NACL 0.9% 3 ML SYG IV (16:30)
[2018-06-27] MEDS ORDERED: BISACODYL (EC) 5 MG TAB PO (16:30)
[2018-06-27] MEDS ORDERED: GLUCOSE GEL 15 GRAM TUBE BUCCAL (16:30)
[2018-06-27] MEDS ORDERED: GLUCOSE GEL 15 GRAM TUBE PO ×2 (16:30)
[2018-06-27] MEDS ORDERED: GLUCAGON 1 MG INJ IM (16:30)
[2018-06-27] MEDS ORDERED: DEXTROSE 50% 50 ML SYRINGE IV ×2 (16:30)
[2018-06-27 16:44] LABS: HEMOGLOBIN A1C 13.3 % (0-5.9)
[2018-06-27 16:45] LABS: B-TYPE NATRIURETIC PEPTIDE 1910 PG/ML (0-125)
[2018-06-27] MEDS: INSULIN ASPART [NOVOLOG] 3 ML PEN SC ×3 (17:47→21:41)
[2018-06-27] MEDS: POLYETHYLENE GLYCOL 17 GM PACKET PO (21:13)
[2018-06-27] MEDS: METOPROLOL 50 MG TAB PO (21:14)
[2018-06-27] MEDS: traZODone 50 MG TAB PO (21:14)
[2018-06-27] MEDS: ACETAMINOPHEN 325 MG TAB PO (21:14)
[2018-06-27] MEDS: ATORVASTATIN 40 MG TAB PO (21:14)
[2018-06-27] MEDS: morphine SULFATE/PF (2 MG/2 ML) SYG IV (21:18)
[2018-06-27] MEDS: INSULIN GLARGINE [LANTus] (100 UNITS/ML) SYG SC (21:41)
[2018-06-28] MEDS: PANTOPRAZOLE (EC) 40 MG TAB PO (05:29)
[2018-06-28] MEDS: ACETAMINOPHEN 325 MG TAB PO ×2 (05:32→14:03)
[2018-06-28] MEDS: ONDANSETRON 4 MG INJ IV (05:43)
[2018-06-28 06:16] LABS: ADD MAN DIFF? NO
[2018-06-28 06:21] LABS: WHITE BLOOD COUNT 15.7 10^3/ul (4.8-10.8)
[2018-06-28 06:21] LABS: BASOPHIL # 0.1 10^3/ul (0.0-0.1); BASOPHILS % 0.3 % (0.0-2.0); EOSINOPHILS % 0.2 % (0.0-7.0); HEMATOCRIT 27.9 % (37.0-47.0); HEMOGLOBIN 9.2 g/dl (12.0-16.0); LYMPHOCYTES # 2.3 10^3/ul (0.8-2.9); LYMPHOCYTES % 14.5 % (15.0-51.0); MEAN CORPUSCULAR HEMOGLOBIN 27.5 pg (29.0-33.0); MEAN CORPUSCULAR VOLUME 83.3 fl (82.0-101.0); MEAN PLATELET VOLUME 10.6 fl (7.4-10.4); MONOCYTE # 1.4 10^3/ul (0.3-0.9); NEUTROPHIL # 11.7 10^3/ul (1.6-7.5); NEUTROPHILS % 74.7 % (39.0-77.0); PLATELET COUNT 296 10^3/UL (140-415); RED BLOOD COUNT 3.35 10^6/ul (4.20-5.40); RED CELL DISTRIBUTION WIDTH 13.2 % (11.5-14.5)
[2018-06-28 06:37] LABS: LACTIC ACID 1.1 mmol/L (0.5-2.0)
[2018-06-28 06:48] LABS: ALBUMIN/GLOBULIN RATIO 0.86; ANION GAP 14 (5-13); Estimated GFR 45 mL/min (>60)
[2018-06-28 06:51] LABS: ALANINE AMINOTRANSFERASE 14 IU/L (13-69); ALBUMIN 2.6 g/dl (3.3-4.9); ALKALINE PHOSPHATASE 82 IU/L (42-121); ASPARTATE AMINO TRANSFERASE 21 IU/L (15-46); BLOOD UREA NITROGEN 21 mg/dl (7-20); CALCIUM 8.2 mg/dl (8.4-10.2); CARBON DIOXIDE 19 mmol/L (21-31); CHLORIDE 102 mmol/L (97-110); CREATININE 1.27 mg/dl (0.44-1.00); GLUCOSE 218 mg/dl (70-220); POTASSIUM 4.6 mmol/L (3.5-5.1); SODIUM 135 mmol/L (135-144); TOTAL PROTEIN 5.6 g/dl (6.1-8.1)
[2018-06-28 07:04] LABS: CHOL/HDL RATIO 5.2 RATIO; CHOLESTEROL 194 mg/dl (100-200); HDL CHOLESTEROL 37 mg/dl (34-88); LDL CHOLESTEROL,CALCULATED 120 mg/dl; MAGNESIUM 1.7 mg/dl (1.7-2.5); TRIGLYCERIDES 183 mg/dl (0-149)
[2018-06-28 07:04] LABS: PHOSPHORUS 3.7 mg/dl (2.5-4.9)
[2018-06-28] MEDS: FLUOXETINE 20 MG CAP PO (08:15)
[2018-06-28] MEDS: FUROSEMIDE 40 MG TAB PO (08:16)
[2018-06-28] MEDS: ASPIRIN (EC) 81 MG TAB PO (08:16)
[2018-06-28] MEDS: LEVOTHYROXINE 50 MCG TAB PO (08:16)
[2018-06-28] MEDS: LOSARTAN 25 MG TAB PO (08:16)
[2018-06-28] MEDS: LORATADINE 10 MG TAB PO (08:16)
[2018-06-28] MEDS: METOPROLOL 50 MG TAB PO ×2 (08:16→21:10)
[2018-06-28] MEDS: LISINOPRIL 5 MG TAB PO (08:17)
[2018-06-28] MEDS: ENOXAPARIN 40 MG/0.4 ML SYG SC (08:23)
[2018-06-28] MEDS: INSULIN ASPART [NOVOLOG] 3 ML PEN SC ×7 (08:23→21:40)
[2018-06-28] MEDS: POLYETHYLENE GLYCOL 17 GM PACKET PO ×2 (09:03→21:09)
[2018-06-28] MEDS: SOD CHLORIDE 0.9% 1,000 ML IV (11:42)
[2018-06-28] MEDS: morphine SULFATE/PF (2 MG/2 ML) SYG IV ×2 (15:53→21:09)
[2018-06-28] MEDS: CEFTRIAXONE 1 GM/50 ML (PMX) 50 ML IVPB (17:23)
[2018-06-28] MEDS: ATORVASTATIN 40 MG TAB PO (21:09)
[2018-06-28] MEDS: traZODone 50 MG TAB PO (21:10)
[2018-06-28] MEDS: INSULIN GLARGINE [LANTus] (100 UNITS/ML) SYG SC (21:40)
[2018-06-29 06:03] LABS: ADD MAN DIFF? NO
[2018-06-29 06:09] LABS: BASOPHILS % 0.2 % (0.0-2.0); EOSINOPHILS # 0.1 10^3/ul (0.0-0.5); EOSINOPHILS % 1.3 % (0.0-7.0); HEMATOCRIT 26.4 % (37.0-47.0); HEMOGLOBIN 8.6 g/dl (12.0-16.0); LYMPHOCYTES # 2.8 10^3/ul (0.8-2.9); LYMPHOCYTES % 27.4 % (15.0-51.0); MEAN CORPUSCULAR HEMOGLOBIN 27.2 pg (29.0-33.0); MEAN CORPUSCULAR HGB CONC 32.6 g/dl (32.0-37.0); MEAN CORPUSCULAR VOLUME 83.5 fl (82.0-101.0); MEAN PLATELET VOLUME 10.8 fl (7.4-10.4); MONOCYTE # 0.9 10^3/ul (0.3-0.9); MONOCYTES % 9.2 % (0.0-11.0); NEUTROPHIL # 6.1 10^3/ul (1.6-7.5); PLATELET COUNT 298 10^3/UL (140-415); RED BLOOD COUNT 3.16 10^6/ul (4.20-5.40); RED CELL DISTRIBUTION WIDTH 13.2 % (11.5-14.5)
[2018-06-29] MEDS: LEVOTHYROXINE 50 MCG TAB PO (06:16)
[2018-06-29] MEDS: PANTOPRAZOLE (EC) 40 MG TAB PO (06:16)
[2018-06-29 07:09] LABS: ANION GAP 11 (5-13); BLOOD UREA NITROGEN 19 mg/dl (7-20); CALCIUM 8.4 mg/dl (8.4-10.2); CARBON DIOXIDE 19 mmol/L (21-31); CHLORIDE 105 mmol/L (97-110); Estimated GFR 59 mL/min (>60); GLUCOSE 252 mg/dl (70-220); MAGNESIUM 1.8 mg/dl (1.7-2.5); POTASSIUM 4.5 mmol/L (3.5-5.1); SODIUM 135 mmol/L (135-144)
[2018-06-29 07:09] LABS: PHOSPHORUS 3.3 mg/dl (2.5-4.9)
[2018-06-29] MEDS: ASPIRIN (EC) 81 MG TAB PO (08:40)
[2018-06-29] MEDS: LORATADINE 10 MG TAB PO (08:40)
[2018-06-29] MEDS: FLUOXETINE 20 MG CAP PO (08:40)
[2018-06-29] MEDS: LISINOPRIL 5 MG TAB PO (08:40)
[2018-06-29] MEDS: LOSARTAN 25 MG TAB PO (08:40)
[2018-06-29] MEDS: POLYETHYLENE GLYCOL 17 GM PACKET PO ×2 (08:42→20:56)
[2018-06-29] MEDS: METOPROLOL 50 MG TAB PO ×2 (08:42→20:56)
[2018-06-29] MEDS: ENOXAPARIN 30 MG/0.3 ML SYG SC (08:47)
[2018-06-29] MEDS: INSULIN ASPART [NOVOLOG] 3 ML PEN SC ×8 (08:57→21:00)
[2018-06-29] MEDS: MEROPENEM 1 GM/50ML(PMX) 50 ML IVPB ×2 (10:30→20:56)
[2018-06-29] MEDS: SUCRALFATE (100 MG/ML) 10ML CUP PO ×2 (17:17→20:56)
[2018-06-29] MEDS: traZODone 50 MG TAB PO (20:56)
[2018-06-29] MEDS: ATORVASTATIN 40 MG TAB PO (20:56)
[2018-06-29] MEDS: INSULIN GLARGINE [LANTus] (100 UNITS/ML) SYG SC (21:05)
[2018-06-30] MEDS: morphine SULFATE/PF (2 MG/2 ML) SYG IV (01:57)
[2018-06-30 02:50] LABS: OCCULT BLOOD STOOL NEGATIVE (NEGATIVE)
[2018-06-30] MEDS: ZOLPIDEM 5 MG TAB PO (04:25)
[2018-06-30 05:29] LABS: ADD MAN DIFF? NO
[2018-06-30 05:33] LABS: BASOPHILS % 0.2 % (0.0-2.0); EOSINOPHILS # 0.2 10^3/ul (0.0-0.5); EOSINOPHILS % 1.6 % (0.0-7.0); HEMATOCRIT 24.9 % (37.0-47.0); HEMOGLOBIN 8.2 g/dl (12.0-16.0); LYMPHOCYTES # 3.9 10^3/ul (0.8-2.9); LYMPHOCYTES % 39.2 % (15.0-51.0); MEAN CORPUSCULAR HEMOGLOBIN 27.2 pg (29.0-33.0); MEAN CORPUSCULAR HGB CONC 32.9 g/dl (32.0-37.0); MEAN CORPUSCULAR VOLUME 82.5 fl (82.0-101.0); MEAN PLATELET VOLUME 10.9 fl (7.4-10.4); MONOCYTES % 9.7 % (0.0-11.0); NEUTROPHIL # 4.9 10^3/ul (1.6-7.5); NEUTROPHILS % 48.6 % (39.0-77.0); PLATELET COUNT 306 10^3/UL (140-415); RED BLOOD COUNT 3.02 10^6/ul (4.20-5.40); RED CELL DISTRIBUTION WIDTH 13.4 % (11.5-14.5)
[2018-06-30 06:07] LABS: ANION GAP 10 (5-13); BLOOD UREA NITROGEN 18 mg/dl (7-20); CALCIUM 8.4 mg/dl (8.4-10.2); CARBON DIOXIDE 21 mmol/L (21-31); CHLORIDE 106 mmol/L (97-110); CREATININE 0.96 mg/dl (0.44-1.00); Estimated GFR > 60 mL/min (>60); GLUCOSE 153 mg/dl (70-220); POTASSIUM 4.5 mmol/L (3.5-5.1); SODIUM 137 mmol/L (135-144)
[2018-06-30 06:11] LABS: PHOSPHORUS 3.9 mg/dl (2.5-4.9)
[2018-06-30] MEDS: PANTOPRAZOLE (EC) 40 MG TAB PO (06:51)
[2018-06-30] MEDS: LEVOTHYROXINE 50 MCG TAB PO (06:51)
[2018-06-30] MEDS: INSULIN ASPART [NOVOLOG] 3 ML PEN SC ×7 (08:31→21:00)
[2018-06-30] MEDS: LISINOPRIL 5 MG TAB PO (09:22)
[2018-06-30] MEDS: ASPIRIN (EC) 81 MG TAB PO (09:23)
[2018-06-30] MEDS: LORATADINE 10 MG TAB PO (09:23)
[2018-06-30] MEDS: METOPROLOL 50 MG TAB PO (09:23)
[2018-06-30] MEDS: FLUOXETINE 20 MG CAP PO (09:23)
[2018-06-30] MEDS: POLYETHYLENE GLYCOL 17 GM PACKET PO ×2 (09:23→22:22)
[2018-06-30] MEDS: SUCRALFATE (100 MG/ML) 10ML CUP PO ×4 (09:23→21:00)
[2018-06-30] MEDS: LOSARTAN 25 MG TAB PO (09:23)
[2018-06-30] MEDS: MEROPENEM 1 GM/50ML(PMX) 50 ML IVPB (09:24)
[2018-06-30] MEDS: ENOXAPARIN 30 MG/0.3 ML SYG SC (09:24)
[2018-06-30] MEDS ORDERED: ZOLPIDEM 5 MG TAB PO (12:30)
[2018-06-30] MEDS: ERTAPENEM SODIUM 1 GM in SOD CHLORIDE 0.9% 100 ML IVPB (14:50)
[2018-06-30] MEDS: FUROSEMIDE 20 MG INJ IV (15:55)
[2018-06-30] MEDS: BISACODYL (EC) 5 MG TAB PO (15:56)
[2018-06-30] MEDS: MAGNESIUM CITRATE 300 ML BTL PO (18:01)
[2018-06-30] MEDS: ACETAMINOPHEN 325 MG TAB PO (18:03)
[2018-06-30] MEDS: POLYETHYLENE GLYCOL 3350 119 GM POWDER PO (19:20)
[2018-06-30] MEDS: ATORVASTATIN 40 MG TAB PO (22:22)
[2018-06-30] MEDS: traZODone 50 MG TAB PO (22:23)
[2018-06-30] MEDS: INSULIN GLARGINE [LANTus] (100 UNITS/ML) SYG SC (22:31)
[2018-07-01 05:23] LABS: ADD MAN DIFF? NO
[2018-07-01 05:28] LABS: BASOPHILS % 0.3 % (0.0-2.0); EOSINOPHILS # 0.2 10^3/ul (0.0-0.5); EOSINOPHILS % 1.9 % (0.0-7.0); HEMATOCRIT 28.9 % (37.0-47.0); HEMOGLOBIN 9.5 g/dl (12.0-16.0); LYMPHOCYTES # 3.9 10^3/ul (0.8-2.9); LYMPHOCYTES % 43.1 % (15.0-51.0); MEAN CORPUSCULAR HEMOGLOBIN 27.3 pg (29.0-33.0); MEAN CORPUSCULAR HGB CONC 32.9 g/dl (32.0-37.0); MEAN PLATELET VOLUME 10.7 fl (7.4-10.4); MONOCYTE # 0.8 10^3/ul (0.3-0.9); MONOCYTES % 8.7 % (0.0-11.0); NEUTROPHILS % 44.7 % (39.0-77.0); PLATELET COUNT 398 10^3/UL (140-415); RED BLOOD COUNT 3.48 10^6/ul (4.20-5.40); RED CELL DISTRIBUTION WIDTH 13.2 % (11.5-14.5)
[2018-07-01 05:48] LABS: ANION GAP 7 (5-13); BLOOD UREA NITROGEN 16 mg/dl (7-20); CALCIUM 8.8 mg/dl (8.4-10.2); CARBON DIOXIDE 22 mmol/L (21-31); CHLORIDE 109 mmol/L (97-110); CREATININE 0.84 mg/dl (0.44-1.00); Estimated GFR > 60 mL/min (>60); GLUCOSE 121 mg/dl (70-220); SODIUM 138 mmol/L (135-144)
[2018-07-01] MEDS: LEVOTHYROXINE 50 MCG TAB PO (07:00)
[2018-07-01] MEDS: PANTOPRAZOLE (EC) 40 MG TAB PO (07:02)
[2018-07-01] MEDS: POLYETHYLENE GLYCOL 3350 119 GM POWDER PO (07:02)
[2018-07-01] MEDS: INSULIN ASPART [NOVOLOG] 3 ML PEN SC ×5 (07:35→21:24)
[2018-07-01] MEDS: BISACODYL (EC) 5 MG TAB PO (08:36)
[2018-07-01] MEDS: LOSARTAN 25 MG TAB PO (08:42)
[2018-07-01] MEDS: SUCRALFATE (100 MG/ML) 10ML CUP PO ×4 (08:42→20:16)
[2018-07-01] MEDS: ASPIRIN (EC) 81 MG TAB PO (08:42)
[2018-07-01] MEDS: POLYETHYLENE GLYCOL 17 GM PACKET PO ×2 (08:42→20:16)
[2018-07-01] MEDS: FLUOXETINE 20 MG CAP PO (08:42)
[2018-07-01] MEDS: LORATADINE 10 MG TAB PO (08:42)
[2018-07-01] MEDS: DEXTROSE 5%-0.45% NACL 1,000 ML IV (11:26)
[2018-07-01] MEDS: Insulin NOVOLOG SS MODERATE Algorithm(NPO/TPN/ENTERAL FEEDS) SC ×2 (12:48→17:00)
[2018-07-01] MEDS: ERTAPENEM SODIUM 1 GM in SOD CHLORIDE 0.9% 100 ML IVPB (12:48)
[2018-07-01] MEDS ORDERED: INSULIN ASPART [NOVOLOG] 3 ML PEN SC (13:00)
[2018-07-01] MEDS ORDERED: ONDANSETRON 4 MG INJ IV (17:00)
[2018-07-01] MEDS ORDERED: morphine LIQ (10 MG/5 ML) CUP PO (17:30)
[2018-07-01] MEDS: hydrALAzine 20 MG INJ IV (18:02)
[2018-07-01] MEDS: INSULIN GLARGINE [LANTus] (100 UNITS/ML) SYG SC (20:14)
[2018-07-01] MEDS: ATORVASTATIN 40 MG TAB PO (20:15)
[2018-07-01] MEDS: traZODone 50 MG TAB PO (20:16)
[2018-07-01] MEDS: traMADol 50 MG TAB PO (21:28)
[2018-07-01] MEDS: FENTAnyl 50 MCG/ML VIAL (22:46)
[2018-07-01] MEDS: PROPOFOL 20 ML (22:46)
[2018-07-02 06:06] LABS: ADD MAN DIFF? NO
[2018-07-02 06:09] LABS: BASOPHILS % 0.4 % (0.0-2.0); EOSINOPHILS # 0.2 10^3/ul (0.0-0.5); EOSINOPHILS % 2.2 % (0.0-7.0); HEMATOCRIT 29.1 % (37.0-47.0); HEMOGLOBIN 9.6 g/dl (12.0-16.0); LYMPHOCYTES # 3.4 10^3/ul (0.8-2.9); LYMPHOCYTES % 37.4 % (15.0-51.0); MEAN CORPUSCULAR HEMOGLOBIN 27.1 pg (29.0-33.0); MEAN CORPUSCULAR VOLUME 82.2 fl (82.0-101.0); MEAN PLATELET VOLUME 10.2 fl (7.4-10.4); MONOCYTE # 0.8 10^3/ul (0.3-0.9); MONOCYTES % 8.7 % (0.0-11.0); NEUTROPHIL # 4.6 10^3/ul (1.6-7.5); NEUTROPHILS % 49.8 % (39.0-77.0); PLATELET COUNT 438 10^3/UL (140-415); RED BLOOD COUNT 3.54 10^6/ul (4.20-5.40); RED CELL DISTRIBUTION WIDTH 13.3 % (11.5-14.5)
[2018-07-02 06:09] LABS: WHITE BLOOD COUNT 9.2 10^3/ul (4.8-10.8)
[2018-07-02 06:27] LABS: ANION GAP 11 (5-13); BLOOD UREA NITROGEN 13 mg/dl (7-20); CALCIUM 8.5 mg/dl (8.4-10.2); CARBON DIOXIDE 24 mmol/L (21-31); CHLORIDE 104 mmol/L (97-110); CREATININE 0.92 mg/dl (0.44-1.00); Estimated GFR > 60 mL/min (>60); GLUCOSE 100 mg/dl (70-220); POTASSIUM 4.1 mmol/L (3.5-5.1); SODIUM 139 mmol/L (135-144)
[2018-07-02] MEDS: PANTOPRAZOLE (EC) 40 MG TAB PO (06:31)
[2018-07-02] MEDS: LEVOTHYROXINE 50 MCG TAB PO (06:31)
[2018-07-02] MEDS: INSULIN ASPART [NOVOLOG] 3 ML PEN SC ×7 (07:30→21:00)
[2018-07-02] MEDS: SUCRALFATE (100 MG/ML) 10ML CUP PO ×4 (08:36→21:27)
[2018-07-02] MEDS: LOSARTAN 25 MG TAB PO (08:37)
[2018-07-02] MEDS: ASPIRIN (EC) 81 MG TAB PO (08:37)
[2018-07-02] MEDS: FLUOXETINE 20 MG CAP PO (08:37)
[2018-07-02] MEDS: LORATADINE 10 MG TAB PO (08:37)
[2018-07-02] MEDS: POLYETHYLENE GLYCOL 17 GM PACKET PO ×2 (08:38→21:00)
[2018-07-02] MEDS: ENOXAPARIN 30 MG/0.3 ML SYG SC (09:54)
[2018-07-02] MEDS: ERTAPENEM SODIUM 1 GM in SOD CHLORIDE 0.9% 100 ML IVPB (12:36)
[2018-07-02] MEDS: LIDOCAINE 1% (MPF) 5 ML VIAL SC (14:49)
[2018-07-02] MEDS: INSULIN GLARGINE [LANTus] (100 UNITS/ML) SYG SC (20:30)
[2018-07-02] MEDS: traZODone 50 MG TAB PO (21:27)
[2018-07-02] MEDS: traMADol 50 MG TAB PO (21:27)
[2018-07-02] MEDS: ATORVASTATIN 40 MG TAB PO (21:27)
[2018-07-03] MEDS: LEVOTHYROXINE 50 MCG TAB PO (06:03)
[2018-07-03] MEDS: PANTOPRAZOLE (EC) 40 MG TAB PO (06:03)
[2018-07-03] MEDS: POLYETHYLENE GLYCOL 17 GM PACKET PO ×2 (08:01→20:24)
[2018-07-03] MEDS: SUCRALFATE (100 MG/ML) 10ML CUP PO ×4 (08:10→20:12)
[2018-07-03] MEDS: INSULIN ASPART [NOVOLOG] 3 ML PEN SC ×7 (08:11→20:15)
[2018-07-03] MEDS: ENOXAPARIN 30 MG/0.3 ML SYG SC (08:12)
[2018-07-03] MEDS: FLUOXETINE 20 MG CAP PO (08:13)
[2018-07-03] MEDS: LOSARTAN 25 MG TAB PO (08:13)
[2018-07-03] MEDS: LORATADINE 10 MG TAB PO (08:14)
[2018-07-03] MEDS: ASPIRIN (EC) 81 MG TAB PO (08:14)
[2018-07-03] MEDS: ERTAPENEM SODIUM 1 GM in SOD CHLORIDE 0.9% 100 ML IVPB (12:24)
[2018-07-03] MEDS: traZODone 50 MG TAB PO (20:11)
[2018-07-03] MEDS: ATORVASTATIN 40 MG TAB PO (20:12)
[2018-07-03] MEDS: INSULIN GLARGINE [LANTus] (100 UNITS/ML) SYG SC (20:14)
[2018-07-04] MEDS: LEVOTHYROXINE 50 MCG TAB PO (06:01)
[2018-07-04] MEDS: PANTOPRAZOLE (EC) 40 MG TAB PO (06:01)
[2018-07-04] MEDS: FLUOXETINE 20 MG CAP PO (08:02)
[2018-07-04] MEDS: ASPIRIN (EC) 81 MG TAB PO (08:02)
[2018-07-04] MEDS: LORATADINE 10 MG TAB PO (08:02)
[2018-07-04] MEDS: INSULIN ASPART [NOVOLOG] 3 ML PEN SC ×7 (08:03→21:00)
[2018-07-04] MEDS: POLYETHYLENE GLYCOL 17 GM PACKET PO ×2 (08:05→21:00)
[2018-07-04] MEDS: ENOXAPARIN 30 MG/0.3 ML SYG SC (08:05)
[2018-07-04] MEDS: SUCRALFATE (100 MG/ML) 10ML CUP PO ×4 (08:06→21:15)
[2018-07-04] MEDS: LOSARTAN 25 MG TAB PO (08:06)
[2018-07-04] MEDS: ERTAPENEM SODIUM 1 GM in SOD CHLORIDE 0.9% 100 ML IVPB (13:22)
[2018-07-04] MEDS: INSULIN GLARGINE [LANTus] (100 UNITS/ML) SYG SC (20:31)
[2018-07-04] MEDS: ATORVASTATIN 40 MG TAB PO (21:15)
[2018-07-04] MEDS: traZODone 50 MG TAB PO (21:15)
[2018-07-05] MEDS: LEVOTHYROXINE 50 MCG TAB PO (06:25)
[2018-07-05] MEDS: PANTOPRAZOLE (EC) 40 MG TAB PO (06:25)
[2018-07-05 06:29] LABS: HEMATOCRIT 29.5 % (37.0-47.0); HEMOGLOBIN 9.5 g/dl (12.0-16.0); MEAN CORPUSCULAR HEMOGLOBIN 26.8 pg (29.0-33.0); MEAN CORPUSCULAR HGB CONC 32.2 g/dl (32.0-37.0); MEAN CORPUSCULAR VOLUME 83.1 fl (82.0-101.0); MEAN PLATELET VOLUME 10.1 fl (7.4-10.4); PLATELET COUNT 487 10^3/UL (140-415); RED BLOOD COUNT 3.55 10^6/ul (4.20-5.40); RED CELL DISTRIBUTION WIDTH 13.3 % (11.5-14.5)
[2018-07-05 06:29] LABS: WHITE BLOOD COUNT 10.1 10^3/ul (4.8-10.8)
[2018-07-05 06:41] LABS: ADD MAN DIFF? YES; POSITIVE DIFF @See below
[2018-07-05 06:56] LABS: ANION GAP 7 (5-13); BLOOD UREA NITROGEN 17 mg/dl (7-20); CALCIUM 8.8 mg/dl (8.4-10.2); CARBON DIOXIDE 26 mmol/L (21-31); CHLORIDE 106 mmol/L (97-110); CREATININE 1.04 mg/dl (0.44-1.00); Estimated GFR 57 mL/min (>60); GLUCOSE 109 mg/dl (70-220); POTASSIUM 4.4 mmol/L (3.5-5.1); SODIUM 139 mmol/L (135-144)
[2018-07-05] MEDS: INSULIN ASPART [NOVOLOG] 3 ML PEN SC ×7 (07:30→21:00)
[2018-07-05] MEDS: SUCRALFATE (100 MG/ML) 10ML CUP PO ×4 (08:39→21:55)
[2018-07-05] MEDS: ENOXAPARIN 30 MG/0.3 ML SYG SC (08:41)
[2018-07-05] MEDS: FLUOXETINE 20 MG CAP PO (08:42)
[2018-07-05] MEDS: LOSARTAN 25 MG TAB PO (08:42)
[2018-07-05] MEDS: ASPIRIN (EC) 81 MG TAB PO (08:42)
[2018-07-05] MEDS: LORATADINE 10 MG TAB PO (08:42)
[2018-07-05] MEDS: POLYETHYLENE GLYCOL 17 GM PACKET PO ×2 (08:42→21:00)
[2018-07-05 09:19] LABS: ANISOCYTOSIS 1+ (0-0); LYMPHOCYTES #M 4.1 10^3/ul (0.8-2.9); LYMPHOCYTES % (M) 41 % (15-51); MONOCYTE #M 0.9 10^3/ul (0.3-0.9); MONOCYTES % (M) 9 % (0-11); PLATELET ESTIMATE NORMAL; POIKILOCYTOSIS 1+ (0-0); POLYCHROMASIA 1+ (0-0); REACTIVE LYMPHOCYTES #M 0.6 10^3/ul (0.0-0.0); REACTIVE LYMPHOCYTES% (M) 6 % (0-0); SEGMENTED NEUTROPHILS (M) % 44 % (39-77); SMUDGE%M 8 % (0-0)
[2018-07-05] MEDS: ERTAPENEM SODIUM 1 GM in SOD CHLORIDE 0.9% 100 ML IVPB (12:36)
[2018-07-05] MEDS: traMADol 50 MG TAB PO (17:40)
[2018-07-05] MEDS: INSULIN GLARGINE [LANTus] (100 UNITS/ML) SYG SC (21:55)
[2018-07-05] MEDS: ATORVASTATIN 40 MG TAB PO (21:58)
[2018-07-05] MEDS: traZODone 50 MG TAB PO (21:58)
[2018-07-06] MEDS: traMADol 50 MG TAB PO (00:54)
[2018-07-06] MEDS: PANTOPRAZOLE (EC) 40 MG TAB PO (06:01)
[2018-07-06] MEDS: LEVOTHYROXINE 50 MCG TAB PO (06:01)
[2018-07-06] MEDS: INSULIN ASPART [NOVOLOG] 3 ML PEN SC ×7 (07:30→21:00)
[2018-07-06] MEDS: ENOXAPARIN 30 MG/0.3 ML SYG SC (08:21)
[2018-07-06] MEDS: LORATADINE 10 MG TAB PO (08:22)
[2018-07-06] MEDS: FLUOXETINE 20 MG CAP PO (08:22)
[2018-07-06] MEDS: SUCRALFATE (100 MG/ML) 10ML CUP PO ×4 (08:22→20:43)
[2018-07-06] MEDS: ASPIRIN (EC) 81 MG TAB PO (08:22)
[2018-07-06] MEDS: LOSARTAN 25 MG TAB PO (08:23)
[2018-07-06] MEDS: POLYETHYLENE GLYCOL 17 GM PACKET PO ×2 (08:24→21:00)
[2018-07-06] MEDS: ERTAPENEM SODIUM 1 GM in SOD CHLORIDE 0.9% 100 ML IVPB (12:14)
[2018-07-06] MEDS: INSULIN GLARGINE [LANTus] (100 UNITS/ML) SYG SC (20:32)
[2018-07-06] MEDS: traZODone 50 MG TAB PO (20:43)
[2018-07-06] MEDS: ATORVASTATIN 40 MG TAB PO (21:02)
[2018-07-07] MEDS: traMADol 50 MG TAB PO (01:25)
[2018-07-07] MEDS: PANTOPRAZOLE (EC) 40 MG TAB PO (06:12)
[2018-07-07] MEDS: LEVOTHYROXINE 50 MCG TAB PO (06:12)
[2018-07-07] MEDS: INSULIN ASPART [NOVOLOG] 3 ML PEN SC ×7 (07:30→20:37)
[2018-07-07] MEDS: LORATADINE 10 MG TAB PO (08:06)
[2018-07-07] MEDS: ASPIRIN (EC) 81 MG TAB PO (08:06)
[2018-07-07] MEDS: FLUOXETINE 20 MG CAP PO (08:06)
[2018-07-07] MEDS: SUCRALFATE (100 MG/ML) 10ML CUP PO ×4 (08:06→20:36)
[2018-07-07] MEDS: ENOXAPARIN 30 MG/0.3 ML SYG SC (08:16)
[2018-07-07] MEDS: POLYETHYLENE GLYCOL 17 GM PACKET PO ×2 (08:17→21:00)
[2018-07-07] MEDS: LOSARTAN 25 MG TAB PO (09:52)
[2018-07-07] MEDS: ERTAPENEM SODIUM 1 GM in SOD CHLORIDE 0.9% 100 ML IVPB (12:15)
[2018-07-07] MEDS: INSULIN GLARGINE [LANTus] (100 UNITS/ML) SYG SC (20:35)
[2018-07-07] MEDS: ATORVASTATIN 40 MG TAB PO (20:36)
[2018-07-07] MEDS: traZODone 50 MG TAB PO (21:28)
[2018-07-08] MEDS: PANTOPRAZOLE (EC) 40 MG TAB PO (05:57)
[2018-07-08] MEDS: LEVOTHYROXINE 50 MCG TAB PO (05:57)
[2018-07-08] MEDS: INSULIN ASPART [NOVOLOG] 3 ML PEN SC ×6 (07:30→17:33)
[2018-07-08] MEDS: ENOXAPARIN 30 MG/0.3 ML SYG SC (08:22)
[2018-07-08] MEDS: LORATADINE 10 MG TAB PO (08:23)
[2018-07-08] MEDS: SUCRALFATE (100 MG/ML) 10ML CUP PO ×3 (08:23→17:10)
[2018-07-08] MEDS: ASPIRIN (EC) 81 MG TAB PO (08:24)
[2018-07-08] MEDS: FLUOXETINE 20 MG CAP PO (08:24)
[2018-07-08] MEDS: LOSARTAN 25 MG TAB PO (08:24)
[2018-07-08] MEDS: POLYETHYLENE GLYCOL 17 GM PACKET PO (08:24)
[2018-07-08] MEDS: ERTAPENEM SODIUM 1 GM in SOD CHLORIDE 0.9% 100 ML IVPB (12:33)
== END 2018-07-08 18:33 | disposition home or self-care (01) | DRG 872 ==
LOC: E/R 07:59 → PP2 06-29 17:45 → TEL 12:18
PROC: 0DJ08ZZ Inspection of Upper Intestinal Tract, Via Natural or Artificial Opening Endoscopic (ICD-10-PCS; principal; 2018-07-01 16:10)
PROC: 0DJD8ZZ Inspection of Lower Intestinal Tract, Via Natural or Artificial Opening Endoscopic (ICD-10-PCS; 2018-07-01 16:10)
DX: A41.9 Sepsis, unspecified organism (principal); N39.0 Urinary tract infection, site not specified; N17.9 Acute kidney failure, unspecified; Z68.42 Body mass index [BMI] 45.0-49.9, adult; N13.30 Unspecified hydronephrosis; B96.20 Unspecified Escherichia coli [E. coli] as the cause of diseases classified elsewhere; Z16.23 Resistance to quinolones and fluoroquinolones; Z95.5 Presence of coronary angioplasty implant and graft; E87.5 Hyperkalemia; E03.9 Hypothyroidism, unspecified; E78.5 Hyperlipidemia, unspecified; I25.5 Ischemic cardiomyopathy; D64.9 Anemia, unspecified; I07.1 Rheumatic tricuspid insufficiency; K25.9 Gastric ulcer, unspecified as acute or chronic, without hemorrhage or perforation; K44.9 Diaphragmatic hernia without obstruction or gangrene; K52.9 Noninfective gastroenteritis and colitis, unspecified; E11.65 Type 2 diabetes mellitus with hyperglycemia; Z79.02 Long term (current) use of antithrombotics/antiplatelets; Z79.82 Long term (current) use of aspirin; E66.01 Morbid (severe) obesity due to excess calories; R11.2 Nausea with vomiting, unspecified; I11.0 Hypertensive heart disease with heart failure; I50.9 Heart failure, unspecified
CPT/HCPCS: 36415; 70450; 74176; 80048; 80053; 80061; 81001; 82150; 82270; 82962; 83036; 83605; 83690; 83735; 83880; 84100; 84439; 84443; 84484; 84703; 85025; 85610; 85730; 87040; 87086; 93005; 93306; 96361; 96365; 96372; 96375; 96376; 99285-25

== ENCOUNTER 2018-10-29 19:39 | Emergency (ER) | payer MEDICAID | END 2018-10-29 21:54 | disposition home or self-care (01) | LOC: FTE 19:39 | DX: R05 Cough (principal); I10 Essential (primary) hypertension; Z79.4 Long term (current) use of insulin; Z79.82 Long term (current) use of aspirin | CPT/HCPCS: 71045; 99283-25 ==

== ENCOUNTER 2018-11-07 08:25 | Emergency (ER) | payer MEDICAID | END 2018-11-07 08:59 | disposition home or self-care (01) | LOC: FTE 08:25 | DX: R05 Cough (principal); I10 Essential (primary) hypertension; E11.9 Type 2 diabetes mellitus without complications; Z79.4 Long term (current) use of insulin; Z79.82 Long term (current) use of aspirin | CPT/HCPCS: 99283 ==

== ENCOUNTER 2018-11-15 18:28 | Emergency (ER) | payer MEDICAID ==
[2018-11-15] MEDS: ALBUTEROL 0.083% (NEB) 2.5 MG/3 ML AMP HHN (20:49)
[2018-11-15 20:59] LABS: ADD MAN DIFF? NO
[2018-11-15] MEDS: DEXAMETHASONE 10 MG/ML 1 ML INJ IV (20:59)
[2018-11-15] MEDS: SOD CHLORIDE 0.9% 1,000 ML IV ×2 (20:59→22:08)
[2018-11-15 21:00] LABS: BASOPHILS % 0.3 % (0.0-2.0); EOSINOPHILS # 0.1 10^3/ul (0.0-0.5); EOSINOPHILS % 1.4 % (0.0-7.0); HEMATOCRIT 37.8 % (37.0-47.0); HEMOGLOBIN 12.4 g/dl (12.0-16.0); LYMPHOCYTES # 4.4 10^3/ul (0.8-2.9); LYMPHOCYTES % 43.7 % (15.0-51.0); MEAN CORPUSCULAR HGB CONC 32.8 g/dl (32.0-37.0); MEAN CORPUSCULAR VOLUME 82.2 fl (82.0-101.0); MONOCYTE # 0.7 10^3/ul (0.3-0.9); MONOCYTES % 6.5 % (0.0-11.0); NEUTROPHIL # 4.8 10^3/ul (1.6-7.5); NEUTROPHILS % 47.7 % (39.0-77.0); PLATELET COUNT 433 10^3/UL (140-415); RED CELL DISTRIBUTION WIDTH 13.4 % (11.5-14.5)
[2018-11-15] MEDS: KETOROLAC 30 MG INJ IV (21:05)
[2018-11-15 21:17] LABS: ANION GAP 9 (5-13); BLOOD UREA NITROGEN 25 mg/dl (7-20); CALCIUM 9.2 mg/dl (8.4-10.2); CARBON DIOXIDE 22 mmol/L (21-31); CHLORIDE 104 mmol/L (97-110); CREATININE 1.06 mg/dl (0.44-1.00); Estimated GFR 56 mL/min (>60); SODIUM 135 mmol/L (135-144)
[2018-11-15 21:50] LABS: POTASSIUM 5.4 mmol/L (3.5-5.1)
[2018-11-15 21:53] LABS: GLUCOSE 492 mg/dl (70-220)
[2018-11-15] MEDS: INSULIN LISPRO 100 UNIT/ML VIAL SC (22:10)
[2018-11-15] MEDS: ACCU-CHEK XX (22:10)
== END 2018-11-15 22:42 | disposition home or self-care (01) ==
LOC: FTE 22:42
DX: I10 Essential (primary) hypertension (principal); Z79.4 Long term (current) use of insulin; Z79.82 Long term (current) use of aspirin
CPT/HCPCS: 71045; 80048; 82962; 85025; 94664; 96372; 96374; 96375; 99284-25

== ENCOUNTER 2019-01-15 17:21 | Emergency (ER) | payer MEDICAID ==
[2019-01-15] MEDS: ONDANSETRON 4 MG INJ IV (21:16)
[2019-01-15] MEDS: SOD CHLORIDE 0.9% 1,000 ML IV ×2 (21:17→23:21)
[2019-01-15] MEDS: morphine 4 MG/ML VIAL IV (21:17)
[2019-01-15 21:20] LABS: ADD MAN DIFF? NO
[2019-01-15 21:22] LABS: BASOPHIL # 0.1 10^3/ul (0.0-0.1); BASOPHILS % 0.3 % (0.0-2.0); EOSINOPHILS % 0.2 % (0.0-7.0); HEMATOCRIT 38.7 % (37.0-47.0); HEMOGLOBIN 12.9 g/dl (12.0-16.0); LYMPHOCYTES # 1.8 10^3/ul (0.8-2.9); LYMPHOCYTES % 10.2 % (15.0-51.0); MEAN CORPUSCULAR HEMOGLOBIN 27.4 pg (29.0-33.0); MEAN CORPUSCULAR HGB CONC 33.3 g/dl (32.0-37.0); MEAN CORPUSCULAR VOLUME 82.2 fl (82.0-101.0); MEAN PLATELET VOLUME 10.7 fl (7.4-10.4); MONOCYTE # 1.3 10^3/ul (0.3-0.9); MONOCYTES % 7.3 % (0.0-11.0); NEUTROPHIL # 14.4 10^3/ul (1.6-7.5); NEUTROPHILS % 81.6 % (39.0-77.0); PLATELET COUNT 373 10^3/UL (140-415); RED BLOOD COUNT 4.71 10^6/ul (4.20-5.40); RED CELL DISTRIBUTION WIDTH 12.7 % (11.5-14.5)
[2019-01-15 21:22] LABS: WHITE BLOOD COUNT 17.6 10^3/ul (4.8-10.8)
[2019-01-15 21:28] LABS: ALANINE AMINOTRANSFERASE 18 IU/L (13-69); ALBUMIN 4.1 g/dl (3.3-4.9); ALBUMIN/GLOBULIN RATIO 1.24; ALKALINE PHOSPHATASE 109 IU/L (42-121); ANION GAP 13 (5-13); ASPARTATE AMINO TRANSFERASE 23 IU/L (15-46); BILIRUBIN,INDIRECT 0.5 mg/dl (0-1.1); BILIRUBIN,TOTAL 0.5 mg/dl (0.2-1.3); BLOOD UREA NITROGEN 21 mg/dl (7-20); CALCIUM 9.4 mg/dl (8.4-10.2); CARBON DIOXIDE 23 mmol/L (21-31); CHLORIDE 99 mmol/L (97-110); CREATININE 1.19 mg/dl (0.44-1.00); Estimated GFR 49 mL/min (>60); LIPASE 158 U/L (23-300); POTASSIUM 4.2 mmol/L (3.5-5.1); SODIUM 135 mmol/L (135-144); TOTAL PROTEIN 7.4 g/dl (6.1-8.1)
[2019-01-15 21:45] LABS: GLUCOSE 426 mg/dl (70-220)
[2019-01-15 22:19] LABS: ADD UMIC YES; UR ASCORBIC ACID NEGATIVE (NEGATIVE); UR BACTERIA FEW /HPF (NONE SEEN); UR BILIRUBIN (Dip) NEGATIVE (NEGATIVE); UR BLOOD (Dip) 3+ mg/dL (NEGATIVE); UR CLARITY SLIGHTLY CLOUDY (CLEAR); UR COLOR STRAW (YELLOW); UR GLUCOSE (Dip) 3+ mg/dL (NEGATIVE); UR KETONES (Dip) NEGATIVE (NEGATIVE); UR LEUKOCYTE ESTERASE (Dip) 1+ Leu/ul (NEGATIVE); UR NITRITE (Dip) NEGATIVE (NEGATIVE); UR RBC > 182 /HPF (0-5); UR SPECIFIC GRAVITY (Dip) 1.018 (1.003-1.030); UR SQUAMOUS EPITHELIAL CELL FEW /HPF (FEW); UR TOTAL PROTEIN (Dip) 3+ mg/dl (NEGATIVE); UR UROBILINOGEN (Dip) NEGATIVE (NEGATIVE); UR WBC 115 /HPF (0-5)
[2019-01-15] MEDS: CEFTRIAXONE 1 GM/50 ML (PMX) 50 ML IVPB (23:21)
== END 2019-01-15 23:55 | disposition home or self-care (01) ==
LOC: E/R 23:55
DX: N12 Tubulo-interstitial nephritis, not specified as acute or chronic (principal); I10 Essential (primary) hypertension; E11.9 Type 2 diabetes mellitus without complications; Z79.4 Long term (current) use of insulin; Z79.82 Long term (current) use of aspirin
CPT/HCPCS: 36415; 74176; 80053; 81001; 83690; 84703; 85025; 96374; 96375; 99285-25

== ENCOUNTER 2019-02-05 08:38 | Emergency (ER) | payer MEDICAID ==
[2019-02-05] MEDS: IBUPROFEN 200 MG TAB PO (09:26)
== END 2019-02-05 09:57 | disposition home or self-care (01) ==
LOC: FTE 08:38
DX: H66.002 Acute suppurative otitis media without spontaneous rupture of ear drum, left ear (principal); I10 Essential (primary) hypertension; E11.9 Type 2 diabetes mellitus without complications; Z79.4 Long term (current) use of insulin; Z79.82 Long term (current) use of aspirin; Z86.73 Personal history of transient ischemic attack (TIA), and cerebral infarction without residual deficits
CPT/HCPCS: 99283; Z7502